=== PATIENT | female | born 1985 ===

== ENCOUNTER 2017-01-04 11:30 | Emergency (ER) | payer OTHER ==
[2017-01-04 11:58] VITALS: BP 123/73; PULSE 83; RESP 16; TEMP 97; O2SAT 99
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
--- NOTE | 2017-01-04 14:30 | RAD ---
PROCEDURE: Cervical Spine Radiographs. HISTORY: Pain. COMPARISON: None. FINDINGS: BONES: Straightening of the cervical spine. No evidence of acute displaced fracture or subluxation. DISC SPACES: Normal. SOFT TISSUES: Normal. No prevertebral soft tissue swelling. OTHER FINDINGS: None. IMPRESSION: Straightening of the cervical spine which could be due to muscle spasm. If clinically warranted further assessment by CT may be obtained.
--- NOTE | 2017-01-04 14:31 | RAD ---
PROCEDURE: Left Knee Radiographs. HISTORY: Pain. COMPARISON: None. FINDINGS: BONES: Normal. No fracture. JOINTS: Normal. No osteoarthritis. JOINT EFFUSION: None. OTHER FINDINGS: None. IMPRESSION: No evidence of acute fracture or dislocation.
== END 2017-01-04 14:20 | disposition home or self-care (01) ==
LOC: H.ER 11:30
DX: S13.4XXA Sprain of ligaments of cervical spine, initial encounter (principal); S39.012A Strain of muscle, fascia and tendon of lower back, initial encounter; S83.92XA Sprain of unspecified site of left knee, initial encounter; V43.52XA Car driver injured in collision with other type car in traffic accident, initial encounter; Y92.410 Unspecified street and highway as the place of occurrence of the external cause

== ENCOUNTER 2017-09-19 14:03 | Emergency (ER) | payer MEDICAID, OTHER ==
[2017-09-19 21:03] VITALS: BP 115/64; PULSE 94; RESP 18; TEMP 97.8; O2SAT 100
== END 2017-09-19 15:00 | disposition home or self-care (01) ==
LOC: H.EROB2 14:03
DX: O46.92 Antepartum hemorrhage, unspecified, second trimester (principal); Z87.59 Personal history of other complications of pregnancy, childbirth and the puerperium

== ENCOUNTER 2018-01-27 07:29 | Inpatient (IN) | payer MEDICAID, OTHER ==
[2018-01-27] MEDS ORDERED: Lactated Ringer's 1,000 ML IV SCH ×2 (07:45)
[2018-01-27 08:13] LABS: BASO % 0.5 % (0.0-2.0); EOS % 0.3 % (0.0-4.0); HEMOGLOBIN 8.7 g/dL (12.0-16.0); LYMPH % 22.1 % (20.0-40.0); MEAN CELL VOLUME 69.7 fl (81.0-99.0); MEAN CORPUSCULAR HEMOGLOBIN 22.1 pg (27.0-31.0); MEAN CORPUSCULAR HGB CONC 31.6 g/dL (33.0-37.0); MEAN PLATELET VOLUME 10.2 fl (7.2-11.7); MONO # 0.6 K/uL (0.0-0.8); MONO % 6.9 % (0.0-10.0); NEUT # 6.4 K/uL (1.8-7.0); NEUT % 70.2 % (50.0-75.0); RBC 3.94 Mil/uL (3.80-5.20); RED CELL DISTRIBUTION WIDTH 17.4 % (11.5-14.5); WHITE BLOOD COUNT 9.2 K/uL (4.8-10.8)
[2018-01-27] MEDS ORDERED: Oxytocin 30 units/LR 500ML 30 U/500 ML BAG IV ONE (08:15)
[2018-01-27] MEDS ORDERED: cefOXitin Sodium 1 GM in Sodium Chloride 0.9% 100 ML IVPB ONE (08:15)
[2018-01-27] MEDS ORDERED: ePHEDrine 50 mg/ml Inj ONE (10:37)
[2018-01-27] MEDS ORDERED: Morphine 1 mg/ml preservative-free Inj(Duramorph) ONE (10:37)
[2018-01-27] MEDS ORDERED: Phenylephrine 10 mg/ml Inj ONE (11:39)
[2018-01-27] MEDS ORDERED: DiphenhydrAMINE 50 mg/ml Inj IVP PRN (12:22)
--- NOTE | 2018-01-27 12:46 | OBADHP ---
Datetime: 09/19/2017 14:30 Admit Comment, IP Provider: 32 YO EGA 20.5 presents with intermittent vaginal bleeding, which s tarted 20:30 last night after intercourse. Last event was 2 hours before arriving. Positive: fm Denies: LOF, CTX; NO active bleed. pnc: Dr. Garrido at [facility]x: c/s x1 gyne: denies hx of sti; pap neg medhx: anemia; no rx famhx: none surg: c/s soc: denies smoking, alcohol, illicit drugs rx: pnv NKDA AAOx3 cardiac: s1s2 no murmur lungs: clear bilaterally, no wheezing abdo: gravid; nontender pelvic: no active bleed; closed cervix 30 f IUP 20.5 -no active bleed. cervix closed -DC home -PTL precautions reviewed case dw Dr. Attila Ferguson MD PGY1 Pelvic Type - PN: Adequate Extremities - PN: Normal Abdomen - PN: Normal Back - PN: Normal Breast - PN: Not Done Lungs - PN: Normal Heart - PN: Normal Thyroid - PN: Not Done Neurologic - PN: Normal HEENT - PN: Normal General - PN: Normal Presentation-Admit: Vertex Gestation - Est Wks by US: 39.0 Vital Signs Provider: Reviewed; Within Normal Limits IP Chief Complaint: Vaginal bleeding Dilatation, Provider: 0 Genitourinary Exam: Normal DTRs - PN: Not Done EGA AdmitDate IP: 20.5 IP Adm Impression: , intrauterine IP Admit Plan: Discharge home
[2018-01-27 12:48] LABS: BASO % 0.3 % (0.0-2.0); EOS % 0.1 % (0.0-4.0); HEMOGLOBIN 7.3 g/dL (12.0-16.0); LYMPH % 14.1 % (20.0-40.0); MEAN CELL VOLUME 70.2 fl (81.0-99.0); MEAN CORPUSCULAR HEMOGLOBIN 21.7 pg (27.0-31.0); MEAN CORPUSCULAR HGB CONC 30.9 g/dL (33.0-37.0); MEAN PLATELET VOLUME 9.8 fl (7.2-11.7); MONO # 0.6 K/uL (0.0-0.8); MONO % 4.3 % (0.0-10.0); NEUT # 11.5 K/uL (1.8-7.0); NEUT % 81.2 % (50.0-75.0); RBC 3.36 Mil/uL (3.80-5.20); RED CELL DISTRIBUTION WIDTH 17.8 % (11.5-14.5); WHITE BLOOD COUNT 14.2 K/uL (4.8-10.8)
--- NOTE | 2018-01-27 12:50 | OBDS ---
DELIVERY PERSONNEL Delivery Doctor: Axel DiegoMichael CHAPA Anesthesiologist: gloria MATERNAL INFORMATION Delivery Anesthesia: Spinal Estimated Blood Loss (ml): 800ml Maternal Complications: None LABOR SUMMARY EDC: 02/01/2018 00:00 No. Babies in Womb: 1 Attempted: No Labor Anesthesia: None LABOR INFORMATION Oxytocin: N/A Group B Beta Strep: Negative Antibiotics # of Doses: Mefoxin 1 gram IVPB Antibiotics Time of Last Dose: 09:47 Steroids Given: None Reason Steroids Not Administered: Not Applicable STAGES OF LABOR Stage 3 hrs: 0 Stage 3 min: 1 VAGINAL DELIVERY Episiotomy: None Laceration Type: None Laceration Repair: Not Applicable CSECTION DELIVERY Primary Indication: Repeat Elective Secondary Indication: N/A CSection Urgency: Elective CSection Incidence: Repeat Labor: No Labor Elective: Elective CSection Incision: Lower Uterine Transverse BABY A INFORMATION Delivery Date/Time: 01/27/2018 11:15 Method of Delivery: Born in Route : Yes : N/A Forceps: N/A Vacuum Extraction: Success x1 no pub Shoulder Dystocia : No SHOULDER DYSTOCIA BABY A Infant Delivery Date/Time: 01/27/2018 11:15 PRESENTATION/POSITION BABY A Presentation: Cephalic Cephalic Presentation: Vertex Breech Presentation: N/A PLACENTA INFORMATION BABY A Placenta Delivery Time : 01/27/2018 11:16 Placenta Method of Delivery: Manual Removal Placenta Status: Delivered SCORES BABY A Heart Rate 1 min: >100 bpm Resp Effort 1 min: Good Cry Reflex Irritability 1 min: Cough or Sneeze or Pulls Away Muscle Tone 1 min: Active Motion Color 1 min: Body [place], Extremities Blue Resuscitation Effort 1 min: Tactile Stimulation SCORE 1 MIN: 9 Heart Rate 5 min: >100 bpm Resp Effort 5 min: Good Cry Reflex Irritability 5 min: Cough or Sneeze or Pulls Away Muscle Tone 5 min: Active Motion Color 5 min: Body [place], Extremities Blue SCORE 5 MIN: 9 Heart Rate 10 min: >100 bpm Resp Effort 10 min: Good Cry Reflex Irritability 10 min: Cough or Sneeze or Pulls Away Muscle Tone 10 min: Active Motion Color 10 min: Completely [place] SCORE 10 MIN: 10 INFORMATION BABY A Gestational Age at Delivery: 39.2 Gestational Status: Term Outcome : Liveborn Infant Condition : Stable Infant Sex: Male IDENTIFICATION/MEDS BABY A ID Band Number: [id number] ID Band Location: Left Leg; Left Arm Vitamin K Given : Not Given Erythromycin Given: Not Given WEIGHT/LENGTH BABY A Infant Birthweight (gms): 3760 Weight (lb): 8 Infant Weight (oz): 5 Infant Length Inches: 20.00 Infant Length cms: 50.8 CORD INFORMATION BABY A No. Cord Vessels: 3 Nuchal Cord : N/A Nuchal Cord Other: none True Knot: none Cord pH Baby Arterial: none Infant Cord pH Baby Venous: none Cord Blood Taken: Yes Banking/Donate Info: none Infant Suction: Mouth ASSESSMENT BABY A Infant Complications: None Physical Findings at Delivery: Within Normal Limits Infant Respirations: Appears Normal Care By: dr dickey / jose singer / rita knight rn Transferred To: Nursery
[2018-01-27] MEDS ORDERED: Bisacodyl 5mg EC Tab PO PRN (13:05)
[2018-01-27] MEDS ORDERED: Oxycodone/Acetaminophen 5/325 mg Tab PO PRN ×2 (13:05)
[2018-01-27] MEDS: Simethicone 80 mg Chewtab PO SCH ×2 (22:17→22:18)
[2018-01-28] MEDS: Simethicone 80 mg Chewtab PO SCH ×4 (05:21→21:46)
[2018-01-28 06:28] LABS: HEMOGLOBIN 8.8 g/dL (12.0-16.0); MEAN CORPUSCULAR HEMOGLOBIN 23.7 pg (27.0-31.0); MEAN CORPUSCULAR HGB CONC 32.8 g/dL (33.0-37.0); RBC 3.69 Mil/uL (3.80-5.20); RED CELL DISTRIBUTION WIDTH 18.6 % (11.5-14.5); WHITE BLOOD COUNT 12.4 K/uL (4.8-10.8)
[2018-01-28 06:32] LABS: MEAN CELL VOLUME 72.3 fl (81.0-99.0)
[2018-01-29] MEDS: Simethicone 80 mg Chewtab PO SCH ×3 (06:48→23:14)
--- NOTE | 2018-01-29 13:16 | OBPPN ---
Datetime: 01/29/2018 13:12 PP Pain Prov: Within normal limits PP Nausea Prov: Denies PP Flatus Prov: Yes PP BM Prov: Yes PP Breasts Prov: Normal PP Heart Prov: Normal PP Lungs Prov: Normal PP Abdomen/Uterus Prov: Normal PP Lochia Prov: Normal PP Vulva/Perineum Prov: Normal PP CVA Tenderness Prov: Normal PP Extremities Prov: Normal PP C/S Incision Prov: Normal PP Impression Prov: Normal progression PP Plan Prov: Continue present management PP Progress Note Prov: stable ppd2 incision healing well adn clean IP PP Procedures: None Vital Signs Provider PP: Reviewed; Within Normal Limits
[2018-01-29 20:48] VITALS: RESP 20
[2018-01-29] MEDS ORDERED: Bisacodyl 5mg EC Tab PO PRN (23:24)
[2018-01-29] MEDS ORDERED: Oxycodone/Acetaminophen 5/325 mg Tab PO PRN ×2 (23:24)
[2018-01-29] MEDS ORDERED: DiphenhydrAMINE 50 mg/ml Inj IVP PRN (23:24)
[2018-01-30] MEDS: Simethicone 80 mg Chewtab PO SCH ×2 (05:45→09:40)
--- NOTE | 2018-01-30 08:48 | OBPPN ---
Datetime: 01/30/2018 08:44 PP Pain Prov: Within normal limits PP Nausea Prov: Denies PP Flatus Prov: Yes PP BM Prov: Yes PP Breasts Prov: Normal PP Heart Prov: Normal PP Lungs Prov: Normal PP Abdomen/Uterus Prov: Normal PP Lochia Prov: Normal PP Vulva/Perineum Prov: Normal PP CVA Tenderness Prov: Normal PP Extremities Prov: Normal PP C/S Incision Prov: Normal PP Progress Prov: Normal PP Impression Prov: Normal progression PP Plan Prov: Continue present management PP Progress Note Prov: stable pod 3 continue present care IP PP Procedures: None Vital Signs Provider PP: Reviewed; Within Normal Limits
--- NOTE | 2018-01-30 08:50 | OBDCSUM ---
Datetime: 09/19/2017 14:51 Follow up at, Provider: Disch Instr Activity: Bedrest; May be up to bathroom; May be up for meals; May Shower Discharge Instructions, Provider: Specific instructions as noted Discharge Diagnosis, Provider: Term Delivered Follow up in weeks, Provider: 1week Disch Referrals: None Disch Activity Restrictions: No exercising; No lifting; No driving; Minimize walking; Minimize stair -climbing; No sexual activity; Nothing in vagina - [place], tampons, douche Discharge Comment, Provider: dc home today rto 1 week call office if any problems Contraception after Delivery: Undecided
[2018-01-30] MEDS ORDERED: Measles, Mumps, and Rubella 0.5 ML VIAL SC ONE (09:28)
[2018-01-30 16:38] VITALS: BP 137/81; PULSE 87; TEMP 97; O2SAT 98
--- NOTE | 2018-01-31 20:55 | OP ---
PROCEDURE DATE: 01/27/2018 PREOPERATIVE DIAGNOSES: Term previous section x1 and for repeat section and anemia. POSTOPERATIVE DIAGNOSES: Term previous section x1 and for repeat section and anemia. PROCEDURE: Repeat low-transverse section and lysis of adhesions. SURGEON: Jason Reyna MD TOWER TECHNICIAN: Maynor Yancey MD TYPE OF ANESTHESIA: Spinal anesthesia. ANESTHESIA ADMINISTERED BY: Bennett Naidu MD DESCRIPTION OF PROCEDURE: With the patient in the supine position under spinal anesthesia, the patient was prepped and draped in the usual sterile manner. A Pfannenstiel incision was taken down to the fascia in layers and the fascia was incised and extended bilaterally. Dr. Yancey doing his part and I am doing my part. After this was done, the muscle was from the fascia by sharp dissection. Following this, the peritoneum was grasped, incised, and extended vertically. Upon entering the abdominopelvic cavity, paracolic gutters were packed with wet laps and pushing the bowel away from the operative field. Bladder flap was established and a low-transverse incision was made in the uterus extended bilaterally and curving upwards. Baby boy was removed without any complication and given to the sales intern who resuscitated. After this was done, the placenta was removed and intact. The uterus was then exteriorized, clean and closed in 2 layers maintaining hemostasis. After this was done, pelvic abdominal cavity was irrigated until clean. The uterus was then repositioned. The peritoneum was grasped and closed with 1 Vicryl. Muscles were approximated with 1 Vicryl. The fascia was closed with 1 Vicryl running interlocking stitch starting at each end and finished in the midline, subcutaneous layer was closed in a subcuticular fashion and 2-0 plain and the skin was closed with ar. Estimated blood loss was about 800 mL. The patient tolerated the procedure well and was in satisfactory condition on her way to recovery room. Jason Reyna MD
== END 2018-01-30 12:20 | disposition home or self-care (01) | DRG 371 ==
LOC: H.L&D 07:53 → H.OB/GYN 18:25
PROVIDERS: ADMIT Specialist; ATTEND Specialist
PROC: 10D00Z1 Extraction of Products of Conception, Low, Open Approach (ICD-10-PCS; principal; 2018-01-27)
PROC: 4A1HXCZ Monitoring of Products of Conception, Cardiac Rate, External Approach (ICD-10-PCS; 2018-01-27)
DX: O34.211 Maternal care for low transverse scar from previous cesarean delivery (principal); N85.8 Other specified noninflammatory disorders of uterus; Z3A.39 39 weeks gestation of pregnancy; Z37.0 Single live birth